=== PATIENT | female | born 1970 | race Native Hawaiian/Other Pacific Islander ===

== ENCOUNTER 2017-12-18 21:07 | Inpatient (IN) | payer BC ==
[~2017-12-18] VITALS: Ht 167.6 cm; Wt 125.8 kg
[2017-12-18 21:24] VITALS: BP 85/40; TEMP 98
[2017-12-18 22:09] LABS: PLATELET COUNT 195 K/uL (152-353)
[2017-12-18 22:29] LABS: POTASSIUM 4.6 mmol/L (3.6-5.2)
[2017-12-19] VITALS (55 sets, daily range): BP systolic 68–125; BP diastolic 29–103; TEMP 97.4–99.7; Ht 167.6 cm; Wt 125.8 kg
[2017-12-19 03:49] LABS: PARTIAL THROMBOPLASTIN TIME 32.3 SECONDS (24.5-33.6)
[2017-12-19] MEDS ORDERED: PREVACID30 MG OR (06:36)
[2017-12-19] MEDS ORDERED: ADDERALL30 MG PO (06:36)
[2017-12-19] MEDS ORDERED: LEVO-T175 MCG PO (06:37)
[2017-12-19] MEDS ORDERED: CLON0.1T16 PO (06:39)
[2017-12-19] MEDS ORDERED: LOTENSIN HCT1 TA1 PO (06:40)
[2017-12-19] MEDS ORDERED: LORA1TAB17 PO (06:42)
[2017-12-19 07:47] LABS: PLATELET COUNT 162 K/uL (152-353)
[2017-12-19 08:05] LABS: POTASSIUM 2.6 mmol/L (3.6-5.2)
[2017-12-20] VITALS (36 sets, daily range): BP systolic 14–156; BP diastolic 43–105; TEMP 98.5–98.6
[2017-12-20 05:56] LABS: POTASSIUM 2.9 mmol/L (3.6-5.2)
[2017-12-20 06:18] LABS: PLATELET COUNT 179 K/uL (152-353)
== END 2017-12-20 15:32 | DRG 872 ==
LOC: ED 21:07 → ICU 22:40
PROC: 05H633Z Insertion of Infusion Device into Left Subclavian Vein, Percutaneous Approach (ICD-10-PCS; principal; 2017-12-20)
DX: A41.89 Other specified sepsis (principal); N17.8 Other acute kidney failure; N18.5 Chronic kidney disease, stage 5; I47.1 Supraventricular tachycardia; E87.1 Hypo-osmolality and hyponatremia; F10.20 Alcohol dependence, uncomplicated; E66.01 Morbid (severe) obesity due to excess calories; I95.89 Other hypotension; E87.6 Hypokalemia; E86.0 Dehydration; E83.39 Other disorders of phosphorus metabolism; E88.09 Other disorders of plasma-protein metabolism, not elsewhere classified
CPT/HCPCS: 36415; 51702; 80048; 80053; 81000; 82550; 82553; 83605; 83615; 83735; 83874; 84100; 84145; 84484; 85007; 85027; 85610; 85730; 86141; 87040; 87070; 87077; 87081; 87088; 87186; 87205; 87280; 87804; 87880; 93005; 94640; 94664; 94760; 96361; 96365; 99284; C1768; J0150; J0153; J0456; J0610; J0696; J0744; J1265; J1650; J2060; J2270; J3411; J3490; P9047

== ENCOUNTER 2017-12-20 15:36 | Outpatient (CLI) | payer BC ==
[~2017-12-20 15:36] MED LIST: ADDERALL30 MG PO; CLON0.1T16 PO; LEVO-T175 MCG PO; LORA1TAB17 PO; LOTENSIN HCT1 TA1 PO; PREVACID30 MG OR
== END 2017-12-20 16:32 | disposition short-term general hospital (02) ==
LOC: AMB 15:36
DX: A41.89 Other specified sepsis (principal); N17.8 Other acute kidney failure; N18.5 Chronic kidney disease, stage 5; I47.1 Supraventricular tachycardia; E87.1 Hypo-osmolality and hyponatremia; F10.20 Alcohol dependence, uncomplicated; E66.01 Morbid (severe) obesity due to excess calories; I95.89 Other hypotension; E87.6 Hypokalemia; E86.0 Dehydration; E83.39 Other disorders of phosphorus metabolism; E88.09 Other disorders of plasma-protein metabolism, not elsewhere classified
CPT/HCPCS: A0425; A0429

== ENCOUNTER 2018-01-03 15:24 | Outpatient (CLI) | payer BC ==
[2018-01-03 15:50] LABS: PLATELET COUNT 379 K/uL (152-353); POTASSIUM 3.9 mmol/L (3.6-5.2)
== END 2018-01-03 18:20 | disposition home or self-care (01) ==
LOC: LAB 15:24
DX: K75.0 Abscess of liver (principal); Z79.2 Long term (current) use of antibiotics
CPT/HCPCS: 80048; 85027

== ENCOUNTER 2018-01-10 13:35 | Outpatient (CLI) | payer BC ==
[2018-01-10 14:07] LABS: PLATELET COUNT 513 K/uL (152-353)
[2018-01-10 14:09] LABS: POTASSIUM 4.1 mmol/L (3.6-5.2)
== END 2018-01-10 20:03 | disposition home or self-care (01) ==
LOC: LAB 13:35
DX: K75.0 Abscess of liver (principal); Z79.2 Long term (current) use of antibiotics
CPT/HCPCS: 80048; 85027

== ENCOUNTER 2018-06-14 15:21 | Emergency (ER) | payer BC ==
[~2018-06-14] VITALS: Ht 170.2 cm; Wt 122.5 kg
[2018-06-14 15:30] VITALS: TEMP 97.9
[2018-06-14 15:55] LABS: PLATELET COUNT 359 K/uL (152-353)
[2018-06-14 16:07] LABS: POTASSIUM 3.3 mmol/L (3.6-5.2)
[2018-06-14 17:56] VITALS: BP 126/66
== END 2018-06-14 17:56 | disposition home or self-care (01) ==
LOC: ED 15:21
DX: K57.92 Diverticulitis of intestine, part unspecified, without perforation or abscess without bleeding (principal)
CPT/HCPCS: 36415; 80053; 81000; 85027; 96365; 96375; 99284; J0295; J1885; J2405; Q9963

== ENCOUNTER 2020-12-10 11:15 | Emergency (ER) | payer BC ==
[~2020-12-10] VITALS: Ht 170.2 cm; Wt 149.7 kg
[2020-12-10 11:26] VITALS: TEMP 97.3
[2020-12-10] MEDS ORDERED: ONDA4TAB3 PO (12:13)
[2020-12-10] MEDS ORDERED: METO5TAB38 PO (12:13)
[2020-12-10] MEDS ORDERED: IBU800 MG PO (12:14)
[2020-12-10] MEDS ORDERED: VITAMIN D22000 UNIT PO (12:14)
[2020-12-10] MEDS ORDERED: LEVO0.2T35 PO (12:15)
[2020-12-10] MEDS ORDERED: EUTHYROX75 MCG PO (12:15)
[2020-12-10] MEDS ORDERED: DILT-XR120 MG PO (12:16)
[2020-12-10] MEDS ORDERED: HYDR200T3 PO (12:16)
[2020-12-10] MEDS ORDERED: DULO30CA PO (12:16)
[2020-12-10] MEDS ORDERED: GRALISE600 MG PO (12:17)
[2020-12-10] MEDS ORDERED: GABA100C2 PO (12:17)
[2020-12-10] MEDS ORDERED: LOTENSIN HCT1 TA2 PO (12:17)
[2020-12-10] MEDS ORDERED: VITAMIN D32000 UNI1 PO (12:18)
[2020-12-10] MEDS ORDERED: PANTOPRAZOLE 40MG TA PO (12:19)
[2020-12-10 13:07] LABS: PLATELET COUNT 313 K/uL (152-353)
[2020-12-10 13:12] LABS: POTASSIUM 4.4 mmol/L (3.6-5.2); SODIUM 138 mmol/L (136-145)
[2020-12-10 13:29] LABS: PARTIAL THROMBOPLASTIN TIME 24.6 SECONDS (24.5-33.6)
[2020-12-10 15:45] VITALS: BP 135/79
== END 2020-12-10 15:45 | disposition home or self-care (01) ==
LOC: ED 11:15
PROVIDERS: Emergency Medicine
DX: R10.84 Generalized abdominal pain (principal); K45.8 Other specified abdominal hernia without obstruction or gangrene; K57.90 Diverticulosis of intestine, part unspecified, without perforation or abscess without bleeding
CPT/HCPCS: 36415; 80053; 80307; 81000; 82150; 83605; 83690; 83880; 84484; 85027; 85610; 85730; 96360; 96375; 99284; J1885; J2405; Q9963